=== PATIENT | female | born 1990 | race Caucasian/White ===

== ENCOUNTER 2016-09-17 19:39 | Emergency (ER) | payer BC ==
[~2016-09-17] VITALS: Ht 172.7 cm; Wt 62.6 kg
[2016-09-17 19:49] VITALS: TEMP 36.8; Ht 172.7 cm; Wt 62.6 kg
[2016-09-17] MEDS ORDERED: ACETAMINOPHEN 325 MG TAB PO STA (20:41)
[2016-09-17] MEDS ORDERED: SODIUM CHLORIDE 0.9% 1000ML 1,000 ML IV STA (20:41)
[2016-09-17] MEDS ORDERED: DEXAMETHASONE SOD INJ 10 MG/ML VIAL IV ONE (20:45)
[2016-09-17 20:59] LABS: BASO % 0.2 %; BASO ABS # 0.02 K/uL (0-0.2); COMPLETE YES; EOS % 0.1 %; HEMATOCRIT 37.4 % (37-47); IG% 0.1 %; LYMPH % 17.2 %; LYMPH ABS # 1.65 K/uL (1.2-3.4); MEAN CELL VOLUME 82.2 fL (80-100); MEAN CORPUSCULAR HEMOGLOBIN 27.3 pg (25-34); MEAN CORPUSCULAR HGB CONC 33.2 g/dl (32-36); MEAN PLATELET VOLUME 11.3 fL (7.4-10.4); MONO % 6.9 %; NEUT % 75.5 %; PLATELET COUNT 231 K/uL (130-400); RED BLOOD COUNT 4.55 M/uL (4.2-5.4); WHITE BLOOD COUNT 9.58 K/uL (4.8-10.8)
[2016-09-17 21:16] LABS: BUN/CREATININE RATIO 6.7 (10-20); CALCIUM 9.3 mg/dl (8.5-10.1); POTASSIUM 3.5 mmol/L (3.5-5.1)
[2016-09-17] MEDS ORDERED: BCPILLS PO (21:37)
[2016-09-17] MEDS ORDERED: AMOX875T PO (21:37)
[2016-09-17 21:47] VITALS: BP 128/89; PULSE 76; O2SAT 100
[2016-09-17] MEDS ORDERED: PRED20TA PO (22:04)
--- NOTE | 2016-09-18 00:50 | EMERGENCY ROOM VISIT NOTE ---
History Report prepared by Tracey: Rosi Ramirez Under the Supervision of: Dr. Freddie Granados M.D. First contact with patient: 20:34 Chief Complaint: ILLNESS Stated Complaint: SORETHROAT,FEVER History of Present Illness The patient is a 26 year old female who presents to the Emergency Room with complaints of a persistent sore throat that began Tuesday. She currently rates her discomfort as an 8/10 in severity. The patient states that she developed her sore throat on Tuesday and additionally states that she had a fever of 103.9 degrees Fahrenheit. She states that she was started on Augmentin on Tuesday and has had six doses since then. The patient states that she had mono two years ago. She additionally associates feeling fatigued and achy today. The patient denies any cough, runny nose, or abdominal pain. She states that she was seen at the walk-in clinic next door and was instructed to come to the emergency department for further work up. The patient denies any active medical problems. Source of History: patient Onset: Tuesday Position: throat Symptom Intensity: 8/10 Quality: other (sore) Timing: other (persistent) Associated Symptoms: + fevers, + fatigue, No cough, No abdominal pain Note: Associated Symptoms: achy Review of Systems See HPI for pertinent positives & negatives. A total of 10 systems reviewed and were otherwise negative. Past Medical & Surgical Surgical Problems: (1) H/O wisdom tooth extraction Family History Hypertension Social History Smoking Status: Never Smoker Smokeless Tobacco Use: No Alcohol Use: none Marital Status: Housing Status: lives with significant other Occupation Status: employed Current/Historical Medications Scheduled Amoxicillin & Pot Clavulanate (Augmentin 875-125 mg), 1 TAB PO Q12 Control Pills ( Control Pills), 1 TAB PO DAILY Prednisone (Prednisone), 3 TAB PO DAILY Allergies Coded Allergies: No Known Allergies (Unverified , 09/17/16) Physical Exam Vital Signs Date Time Temp Pulse Resp B/P (MAP) Pulse Ox O2 Delivery O2 Flow Rate FiO2 09/17/16 21:47 76 16 128/89 100 Room Air 09/17/16 19:49 36.8 94 18 153/96 100 Room Air Physical Exam Constitutional: Vital signs reviewed. Eyes: Pupils are equal round reactive to light. Conjunctiva are noninjected. ENT: Bilateral tonsillar enlargement with bilateral exudate. No uvular edema or shift. No peritonsillar fluctuance. No trismus or drooling. Neck bilateral anterior cervical lymphadenopathy, supple without meningeal signs. Respiratory: Clear to auscultation bilaterally. Breath sounds are equal bilaterally. No wheezing or stridor. Cardiovascular: Regular rate and rhythm. No rubs or gallops. GI: Soft, nondistended and nontender. No organomegaly. Bowel sounds are present. Musculoskeletal: No peripheral edema. Integumentary: No cyanosis. Neurological: The patient is awake and alert. No focal deficits. Psychiatric: Normal affect. Medical Decision & Procedures Laboratory Results 09/17/16 20:35 Red Blood Count 4.55, Mean Corpuscular Volume 82.2, Mean Corpuscular Hemoglobin 27.3, Mean Corpuscular Hemoglobin Concent 33.2, Mean Platelet Volume 11.3, Neutrophils (%) (Auto) 75.5, Lymphocytes (%) (Auto) 17.2, Monocytes (%) (Auto) 6.9, Eosinophils (%) (Auto) 0.1, Basophils (%) (Auto) 0.2, Neutrophils # (Auto) 7.23, Lymphocytes # (Auto) 1.65, Monocytes # (Auto) 0.66, Eosinophils # (Auto) 0.01, Basophils # (Auto) 0.02 09/17/16 20:35 Test 09/17/16 20:35 White Blood Count 9.58 K/uL (4.8-10.8) Red Blood Count 4.55 M/uL (4.2-5.4) Hemoglobin 12.4 g/dL (12.0-16.0) Hematocrit 37.4 % (37-47) Mean Corpuscular Volume 82.2 fL (80-100) Mean Corpuscular Hemoglobin 27.3 pg (25-34) Mean Corpuscular Hemoglobin Concent 33.2 g/dl (32-36) Platelet Count 231 K/uL (130-400) Mean Platelet Volume 11.3 fL (7.4-10.4) Neutrophils (%) (Auto) 75.5 % Lymphocytes (%) (Auto) 17.2 % Monocytes (%) (Auto) 6.9 % Eosinophils (%) (Auto) 0.1 % Basophils (%) (Auto) 0.2 % Neutrophils # (Auto) 7.23 K/uL (1.4-6.5) Lymphocytes # (Auto) 1.65 K/uL (1.2-3.4) Monocytes # (Auto) 0.66 K/uL (0.11-0.59) Eosinophils # (Auto) 0.01 K/uL (0-0.5) Basophils # (Auto) 0.02 K/uL (0-0.2) RDW Standard Deviation 46.1 fL (36.4-46.3) RDW Coefficient of Variation 15.3 % (11.5-14.5) Immature Granulocyte % (Auto) 0.1 % Immature Granulocyte # (Auto) 0.01 K/uL (0.00-0.02) Anion Gap 8.0 mmol/L (3-11) Est Creatinine Clear Calc Drug Dose 85.0 ml/min Estimated GFR () 90.7 Estimated GFR (Non- 78.2 BUN/Creatinine Ratio 6.7 (10-20) Calcium Level 9.3 mg/dl (8.5-10.1) Total Bilirubin 0.7 mg/dl (0.2-1) Direct Bilirubin 0.2 mg/dl (0-0.2) Aspartate Amino Transf (AST/SGOT) 13 U/L (15-37) Alanine Aminotransferase (ALT/SGPT) 18 U/L (12-78) Alkaline Phosphatase 90 U/L (45-117) Total Protein 8.3 gm/dl (6.4-8.2) Albumin 3.6 gm/dl (3.4-5.0) Monoscreen NEG (NEG) Laboratory results as reviewed by me. Medications Administered Medications (Trade) Dose Ordered Sig/Campbell Route Start Time Stop Time Status Last Admin Dose Admin Sodium Chloride 1,000 ml @ 999 mls/hr Q1H1M STAT IV 09/17/16 20:41 09/17/16 21:41 DC 09/17/16 21:01 999 MLS/HR Acetaminophen (Tylenol Tab) 650 mg NOW STAT PO 09/17/16 20:41 09/17/16 20:43 DC 09/17/16 21:02 650 MG Dexamethasone Sodium Phosphate (Decadron Inj) 10 mg NOW ONCE IV 09/17/16 20:45 09/17/16 20:46 DC 09/17/16 21:02 10 MG ED Course 2035: The patient was evaluated in room A11B. A complete history and physical exam was performed. 2040: Ordered Tylenol Tab 650 mg PO, Sodium Chloride 1000 ml @ 999 mls/hr IV. 2044: Ordered Decadron Inj 10 mg IV. 2153: I reevaluated the patient and she is resting comfortably. I discussed the exam findings with her and I discussed the treatment plan. She verbalized compete understanding and agreement. She is ready to go home. Medical Decision This is a 26-year-old female who presents with a sore throat. Differential diagnosis includes exudative pharyngitis, peritonsillar abscess, infectious mononucleosis, strep pharyngitis, outpatient treatment failure. I did perform a limited focused review of portions of the patient's old chart on the electronic medical record. The patient has had no prior visits. Blood Pressure Screening: Patient was found to have an elevated blood pressure and was referred to their primary doctor for recheck and further treatment. Medication Reconciliation: I attest that I have personally reviewed the patient' s current medication list. I did evaluate the patient as noted above. The patient is presenting with persistent sore throat despite being on antibiotics. She has tonsillar enlargement bilaterally with exudate. She does not have signs of peritonsillar abscess. There is no fluctuance to the tonsillar pillars on palpation. She has no uvula shift or edema. She has no trismus or drooling. A rapid strep test was obtained and was negative. IV access was established. I did treat her with IV fluids. She was also given Tylenol. I also treated her with Decadron 10 mg IV. I did order and review the patient's blood work as noted in the electronic medical record. Her white blood cell count is not elevated. I did reassess the patient. I did discuss the test results with her. I did discuss the possibility of CT scanning but I felt it was not essential as she does not have clinical signs of retropharyngeal abscess or peritonsillar abscess. She was in agreement and felt comfortable continuing her antibiotics and be placed on prednisone to help with the inflammation. She was given a prescription for prednisone and advised to follow up closely with her doctor or Dr. Barone of otolaryngology. Impression Primary Impression: Exudative pharyngitis Scribe Attestation The scribe's documentation has been prepared under my direct and personally reviewed by me in its entirety. I confirm that the note above accurately reflects all work, treatment, procedures, and medical decision making performed by me. Departure Information Dispostion Home / Self-Care Prescriptions Prednisone (Prednisone) 20 Mg Tab 3 TAB PO DAILY, #12 TAB FOR 4 DAYS Prov: Freddie Granados M.D. 09/17/16 Referrals Xochilt Barone M.D. Woytowich, Jessica A., PA-C Forms HOME CARE DOCUMENTATION FORM, IMPORTANT VISIT INFORMATION, WORK / SCHOOL INSTRUCTIONS Patient Instructions My [facility] Additional Instructions You have been examined and treated today on an emergency basis only. This is not a substitute for, or an effort to provide, complete comprehensive medical care. It is impossible to recognize and treat all injuries or illnesses in a single emergency department visit. It is therefore important that you follow up closely with your physician and/or Dr. Barone of otolaryngology. Call as soon as possible for an appointment. Return for worsening symptoms or if you develop difficulty breathing, abdominal pain, inability to open your mouth, drooling or any other concerning symptoms.
== END 2016-09-17 22:15 | disposition home or self-care (01) ==
LOC: C.EDB 19:42 → MERGE 19:42 → C.EDA 22:15
DX: J02.9 Acute pharyngitis, unspecified (principal)

== ENCOUNTER → 2017-03-17 | Outpatient (CLI) | payer BC ==
[~2017-03-17] MED LIST: AMOX875T PO; BCPILLS PO; DOCU-94 PO; PRED20TA PO; PRENTAB26 PO
== END | disposition home or self-care (01) ==
LOC: C.LABSPEC 16:30
PROVIDERS: ATTEND Obstetrics & Gynecology
DX: Z34.01 Encounter for supervision of normal first pregnancy, first trimester (principal)

== ENCOUNTER → 2017-03-22 | Outpatient (CLI) | payer BC ==
[~2017-03-22] MED LIST changes: -DOCU-94 PO; -PRED20TA PO; -PRENTAB26 PO
== END | disposition home or self-care (01) ==
LOC: C.LABSPEC 17:31
PROVIDERS: ATTEND Obstetrics & Gynecology
DX: Z34.01 Encounter for supervision of normal first pregnancy, first trimester (principal)

== ENCOUNTER → 2017-03-22 | Outpatient (CLI) | payer BC | END | disposition home or self-care (01) | LOC: C.PAPS 09:23 | PROVIDERS: ATTEND Obstetrics & Gynecology | DX: Z34.01 Encounter for supervision of normal first pregnancy, first trimester (principal); R87.618 Other abnormal cytological findings on specimens from cervix uteri ==

== ENCOUNTER → 2017-04-07 | Outpatient (CLI) | payer BC ==
[2017-04-07 17:16] LABS: BASO % 0.3 %; BASO ABS # 0.03 K/uL (0-0.2); EOS % 0.7 %; EOS ABS # 0.07 K/uL (0-0.5); HEMOGLOBIN 11.4 g/dL (12.0-16.0); IG# 0.02 K/uL (0.00-0.02); LYMPH % 23.7 %; LYMPH ABS # 2.52 K/uL (1.2-3.4); MEAN CELL VOLUME 82.3 fL (80-100); MEAN CORPUSCULAR HEMOGLOBIN 27.6 pg (25-34); MEAN CORPUSCULAR HGB CONC 33.5 g/dl (32-36); MEAN PLATELET VOLUME 10.2 fL (7.4-10.4); MONO % 5.7 %; MONO ABS # 0.61 K/uL (0.11-0.59); NEUT % 69.4 %; NEUT ABS # 7.38 K/uL (1.4-6.5); PLATELET COUNT 242 K/uL (130-400); RED CELL DISTRIBUTION WIDTH CV 15.8 % (11.5-14.5); RED CELL DISTRIBUTION WIDTH SD 47.3 fL (36.4-46.3); WHITE BLOOD COUNT 10.63 K/uL (4.8-10.8)
== END | disposition home or self-care (01) ==
LOC: C.LAB1850 16:19
PROVIDERS: ATTEND Obstetrics & Gynecology
DX: Z34.01 Encounter for supervision of normal first pregnancy, first trimester (principal)

== ENCOUNTER → 2017-05-23 | Outpatient (CLI) | payer BC ==
[2017-05-23 16:52] LABS: BASO % 0.1 %; BASO ABS # 0.01 K/uL (0-0.2); EOS % 0.6 %; EOS ABS # 0.05 K/uL (0-0.5); HEMATOCRIT 32.8 % (37-47); HEMOGLOBIN 11.2 g/dL (12.0-16.0); IG# 0.02 K/uL (0.00-0.02); LYMPH % 20.8 %; LYMPH ABS # 1.69 K/uL (1.2-3.4); MEAN CORPUSCULAR HEMOGLOBIN 28.4 pg (25-34); MEAN CORPUSCULAR HGB CONC 34.1 g/dl (32-36); MEAN PLATELET VOLUME 10.1 fL (7.4-10.4); MONO % 5.2 %; MONO ABS # 0.42 K/uL (0.11-0.59); NEUT % 73.1 %; NEUT ABS # 5.92 K/uL (1.4-6.5); PLATELET COUNT 231 K/uL (130-400); RED CELL DISTRIBUTION WIDTH CV 14.4 % (11.5-14.5); RED CELL DISTRIBUTION WIDTH SD 44.2 fL (36.4-46.3); WHITE BLOOD COUNT 8.11 K/uL (4.8-10.8)
[2017-05-23 17:22] LABS: ALT/SGPT 28 U/L (12-78); CREATININE 0.61 mg/dl (0.60-1.20); URIC ACID 2.8 mg/dl (2.6-7.2)
[2017-05-23 17:23] LABS: AST/SGOT 13 U/L (15-37)
== END | disposition home or self-care (01) ==
LOC: C.LAB1850 15:47
PROVIDERS: ATTEND Obstetrics & Gynecology
DX: Z34.02 Encounter for supervision of normal first pregnancy, second trimester (principal); O10.912 Unspecified pre-existing hypertension complicating pregnancy, second trimester

== ENCOUNTER → 2017-10-10 | Outpatient (CLI) | payer BC | END | disposition home or self-care (01) | LOC: C.LABSPEC 16:51 | PROVIDERS: ATTEND Obstetrics & Gynecology | DX: Z34.03 Encounter for supervision of normal first pregnancy, third trimester (principal) ==

== ENCOUNTER 2017-10-27 11:44 | Inpatient (IN) | payer BC ==
[~2017-10-27] VITALS: Ht 170.2 cm; Wt 76.4 kg
[2017-10-27] MEDS ORDERED: LACTATED RINGER'S 1000ML 1,000 ML IV PRN (12:54)
[2017-10-27] MEDS ORDERED: LACTATED RINGER'S 1000ML 1,000 ML IV SCH (12:54)
[2017-10-27 13:34] LABS: HEMATOCRIT 38.4 % (37-47); HEMOGLOBIN 13.4 g/dL (12.0-16.0); MEAN CELL VOLUME 86.7 fL (80-100); MEAN CORPUSCULAR HEMOGLOBIN 30.2 pg (25-34); MEAN CORPUSCULAR HGB CONC 34.9 g/dl (32-36); MEAN PLATELET VOLUME 11.5 fL (7.4-10.4); PLATELET COUNT 190 K/uL (130-400); RED CELL DISTRIBUTION WIDTH CV 15.5 % (11.5-14.5); RED CELL DISTRIBUTION WIDTH SD 49.9 fL (36.4-46.3); WHITE BLOOD COUNT 11.49 K/uL (4.8-10.8)
[2017-10-27 14:08] VITALS: Ht 170.2 cm; Wt 76.4 kg
[2017-10-27 14:11] LABS: ALKALINE PHOSPHATASE 131 U/L (45-117); ALT/SGPT 21 U/L (12-78); BLOOD UREA NITROGEN 13 mg/dl (7-18); CALCIUM 9.1 mg/dl (8.5-10.1); CARBON DIOXIDE 22 mmol/L (21-32); CREATININE 0.71 mg/dl (0.60-1.20); GLUCOSE 72 mg/dl (70-99); SODIUM 135 mmol/L (136-145); TOTAL PROTEIN 7.6 gm/dl (6.4-8.2)
[2017-10-27] MEDS ORDERED: DOCU-94 PO (14:11)
[2017-10-27] MEDS ORDERED: PRENTAB26 PO (14:11)
[2017-10-27] MEDS ORDERED: BUPIVACAINE 0.25% 30 ML VIAL ONE (15:17)
[2017-10-27] MEDS ORDERED: EpHEDrine SULFATE INJ 50 MG/ML AMP ONE (15:17)
[2017-10-27] MEDS ORDERED: FENTANYL CITRATE INJ 50 MCG/1 ML 2 ML VIAL ONE (15:17)
[2017-10-27] MEDS ORDERED: FENTANYL 2MCG/ML ROPIV 1.25MG/ML 100ML BAG ONE (15:18)
[2017-10-27 15:20] LABS: POTASSIUM 3.9 mmol/L (3.5-5.1)
[2017-10-27] MEDS ORDERED: NALOXONE HCL INJ 1 MG in SODIUM CHLORIDE 0.9% 1000ML 1,000 ML IV PRN (16:22)
[2017-10-27] MEDS ORDERED: LACTATED RINGER'S 1000ML 500 ML IV PRN (16:22)
[2017-10-27] MEDS ORDERED: EpHEDrine SULFATE INJ 50 MG/ML AMP IV PRN (16:30)
[2017-10-27] MEDS ORDERED: ONDANSETRON INJ 2 MG/ML 2 ML VIAL IV PRN (16:30)
[2017-10-27] MEDS ORDERED: NALOXONE HCL INJ 0.4 MG/1 ML VIAL/CARP IV PRN (16:30)
[2017-10-27] MEDS ORDERED: FENTANYL 2MCG/ML ROPIV 1.25MG/ML 100ML BAG EPI PRN (16:30)
[2017-10-27] MEDS ORDERED: DiphenhydrAMINE HCL 50 MG/ML VIAL IV PRN (16:30)
[2017-10-27] MEDS ORDERED: NALBUPHINE HCL INJ 10 MG/ML 1ML AMP IV PRN (16:30)
[2017-10-27] MEDS ORDERED: OXYTOCIN 30 UNITS/500ML NSS IV ONE (18:43)
[2017-10-27] MEDS ORDERED: BENZOCAINE 20% AER SPR 82.5 GM CAN EXT PRN (19:00)
[2017-10-27] MEDS ORDERED: OXYCODONE/ACETAMINOPHEN 5-325 TAB PO PRN (19:00)
[2017-10-27] MEDS ORDERED: HYDROCORTISONE ACETATE 25 MG SUPP PR PRN (19:00)
[2017-10-27] MEDS ORDERED: LANOLIN OINT EXT PRN (19:00)
[2017-10-27] MEDS ORDERED: ACETAMINOPHEN 325 MG TAB PO PRN (19:00)
[2017-10-27] MEDS ORDERED: SUPERCREAM 0.870 % 15GM JAR EXT PRN (19:00)
[2017-10-27] MEDS ORDERED: OXYTOCIN 30 UNITS/500ML NSS IV PRN (19:00)
--- NOTE | 2017-10-27 19:15 | Anesthesia Procedure Note ---
Anesthesia Epidural Removal Nt Date & Time Oct 27, 2017 at 19:15 Vital Signs Pain Intensity: 0.0 Notes Mental Status: alert / awake / arousable, participated in evaluation Nausea / Vomiting: adequately controlled Pain: adequately controlled Airway Patency, RR, SpO2: stable & adequate BP & HR: stable & adequate Hydration State: stable & adequate Neuraxial Anesthesia: was administered, sensory block is resolving Anesthetic Complications: no major complications apparent, pt satisfied with anesthetic care Epidural: removed without complications, with tip intact
[2017-10-27] MEDS: DOCUSATE SODIUM 100 MG CAP PO SCH (20:00)
[2017-10-27 21:10] VITALS: BP 134/85; PULSE 90; TEMP 36.4; O2SAT 98
--- NOTE | 2017-10-27 22:42 | DELIVERY SUMMARY ---
DATE OF OPERATION: 10/27/2017 PREOPERATIVE DIAGNOSES: 1. Intrauterine at 39-0/7 weeks. 2. Chronic hypertension in . 3. Normal labor. POSTOPERATIVE DIAGNOSES: Same. PROCEDURES: 1. Amniotomy. 2. Epidural anesthesia. 3. Normal spontaneous vaginal delivery. 4. Second degree perineal laceration with repair. SURGEON: Skyla Can MD ANESTHESIA: Epidural. ESTIMATED BLOOD LOSS: 300 mL. DESCRIPTION OF PROCEDURE: The patient presented to labor and delivery from the office where she was checked and found to be 5 cm and 90%. She was admitted. We discussed options, and she opted for amniotomy. This was performed for clear fluid. She then became uncomfortable and underwent an epidural anesthetic when she was 6 cm dilated. She then progressed spontaneously to complete, complete, +3 station. She pushed for a very short period of time to deliver a viable female infant in RICHARD presentation with a nuchal arm. There was no nuchal cord. The nose and mouth were bulb suctioned, and the rest of the infant was then delivered without difficulty. The infant was vigorous. The nose and mouth were suctioned. The was placed on the maternal abdomen for drying and attention. Cord was clamped and cut at about 30-40 seconds of life, and then blood was collected for donation. Placenta was delivered spontaneously intact with the 3-vessel cord. Cervix, sulci, and rectum were examined and found to be intact. The hemostasis was obtained with dilute Pitocin and fundal massage. Estimated blood loss is 300 mL. Apgars 8 and 8. Mother and baby doing well at the end of the delivery. I attest to the content of the Intraoperative Record and any orders documented therein. Any exception s are noted below.
[2017-10-27 23:20] VITALS: BP 125/81; PULSE 92; TEMP 36.7; O2SAT 98
[2017-10-28 04:15] VITALS: BP 130/86; PULSE 84; TEMP 36.7; O2SAT 100
[2017-10-28] MEDS: IBUPROFEN 600 MG TAB PO PRN ×5 (04:20→23:27)
--- NOTE | 2017-10-28 06:28 | Progress Note ---
Subjective Oct 28, 2017. Subjective conversation w/ patient, physical exam Ambulation: ambulating normally Voiding: no voiding problems Passing Gas: Yes Diet Tolerance: Regular Diet Lochia: Moderate Feeding Type: Breast Feeding Pain: Improving Review of Systems Constitutional: No fever, No chills, No sweats Respiratory: No cough, No sputum, No wheezing Cardiac: No chest pain, No palpitations Abdomen: No pain, No nausea, No vomiting, No diarrhea Female : No dysuria Objective Vital Signs Date Time Temp Pulse Resp B/P (MAP) Pulse Ox O2 Delivery O2 Flow Rate FiO2 10/28/17 04:15 36.7 84 20 130/86 (101) 100 Room Air 10/27/17 23:20 36.7 92 18 125/81 (96) 98 Room Air 10/27/17 23:20 98 Room Air 10/27/17 21:10 36.4 90 18 134/85 (101) 98 Room Air 10/27/17 21:10 98 Room Air Physical Exam General Appearance: WELL-APPEARING, NO APPARENT DISTRESS Respiratory/Chest: chest non-tender, normal breath sounds Cardiovascular: regular rate, rhythm Abdomen: normal bowel sounds Fundus: Firm, Relation to Umbilicus (-1cm) Extremities: non-tender, no calf tenderness Laboratory Results Last 24 Hours Test 10/27/17 13:03 10/27/17 13:15 10/27/17 14:51 10/28/17 04:44 White Blood Count 11.49 K/uL Red Blood Count 4.43 M/uL Hemoglobin 13.4 g/dL Hematocrit 38.4 % Mean Corpuscular Volume 86.7 fL Mean Corpuscular Hemoglobin 30.2 pg Mean Corpuscular Hemoglobin Concent 34.9 g/dl RDW Standard Deviation 49.9 fL RDW Coefficient of Variation 15.5 % Platelet Count 190 K/uL Mean Platelet Volume 11.5 fL Sodium Level 135 mmol/L Potassium Level mmol/L 3.9 mmol/L Chloride Level 105 mmol/L Carbon Dioxide Level 22 mmol/L Anion Gap 8.0 mmol/L Blood Urea Nitrogen 13 mg/dl Creatinine 0.71 mg/dl Estimated GFR () 136.2 Estimated GFR (Non- 117.6 BUN/Creatinine Ratio 18.5 Random Glucose 72 mg/dl Calcium Level 9.1 mg/dl Total Bilirubin 0.3 mg/dl Aspartate Amino Transf (AST/SGOT) U/L 15 U/L Alanine Aminotransferase (ALT/SGPT) 21 U/L Alkaline Phosphatase 131 U/L Total Protein 7.6 gm/dl Albumin 3.0 gm/dl Globulin 4.6 gm/dl Albumin/Globulin Ratio 0.7 Medications Current Inpatient Medications Medications (Trade) Dose Ordered Sig/Campbell Route Start Time Stop Time Status Last Admin Dose Admin Oxytocin (Pitocin IV) 30 units UD PRN IV 10/27/17 19:00 11/26/17 18:59 Benzocaine (Dermoplast Aero Spr) 1 appln PRN PRN EXT 10/27/17 19:00 11/26/17 18:59 10/27/17 21:28 1 APPLN Cocaine HCl (Supercream 0.870% Cr) BID PRN EXT 10/27/17 19:00 11/10/17 18:59 Hydrocortisone Acetate (Anusol Hc Supp) 25 mg BID PRN VA 10/27/17 19:00 11/26/17 18:59 Lanolin (Lanolin Oint) PRN PRN EXT 10/27/17 19:00 11/26/17 18:59 Prenat Multivit/ Radio Interference Investigator/Iron/Folic Ac ( Vitamin Tab) 1 tab DAILY PO 10/28/17 08:00 11/27/17 07:59 Ibuprofen (Motrin Tab) 600 mg Q4H PRN PO 10/27/17 19:00 11/26/17 18:59 10/28/17 04:20 600 MG Acetaminophen (Tylenol Tab) 650 mg Q6H PRN PO 10/27/17 19:00 11/26/17 18:59 Oxycodone/ Acetaminophen (Percocet 5-325mg Tab) 1 tab Q4H PRN PO 10/27/17 19:00 11/10/17 18:59 Docusate Sodium (coLACE CAP) 100 mg BID PO 10/27/17 20:00 11/26/17 19:59 Assessment and Plan Post- Day#: 1 Continue Routine Care: 27 yo PPD1 s/p -AFVSS, Pt doing well resting comfortably -F/U CBC HGB 13.4 on admission no si/sx of anemia -Plan is to breast feed -Tolerating regular diet, no n/v -Continue to encourage ambulation -Routine care Resident Physician Supervision Note: I interviewed and examined the patient. Discussed with Dr. Nielsen and agree with findings and plan as documented in the note. Any exceptions or clarifications are listed here: Doing well. Routine care. Documented By: Skyla Can Resident Tracking Resident Involvement: Resident Care Provided Care Provided: Adult [facility]
--- NOTE | 2017-10-28 06:51 | Discharge Instructions ---
Discharge Instructions Date of Service Oct 28, 2017. Admission Reason for Admission: Check Labor Discharge Discharge Diagnosis / Problem: Discharge Goals Goal(s): Routine recovery after delivery Medications Continue Dispensed Medications: supercream, dermaplast, tucks Activity Recommendations Activity Limitations: per Instructions/Follow-up section . Instructions / Follow-Up Instructions / Follow-Up ACTIVITY RECOMMENDATIONS: * Gradual return to full activity over the next 2-3 weeks. * No lifting - nothing heavier than baby over the next 2-3 weeks. * Do not engage in vigorous exercise, sexual activity or sports until cleared by your physician. * Do not drive or operate any motorized equipment until cleared by your physician. * You may shower/bathe daily. MEDICATIONS: For discomfort or pain, you may use Acetaminophen (Tylenol), Ibuprofen (Advil), or Naproxen (Aleve) following the package directions. For constipation you may use Colace following the package directions. BREAST CARE: If you are not breast feeding: * Wear a supportive bra 24 hours a day for one to two weeks. * Avoid stimulating your breasts and nipples as much as possible during the first few weeks after delivery. * When taking a shower, have the warm water hit your back, not breasts. * When your breasts feel full, apply ice packs. Usually three to four times a day helps ease the discomfort. * Take a mild pain medication (Tylenol / Motrin) when you are uncomfortable. If breast feeding: * Use breast milk to lubricate nipples. Lansinoh cream may be used for sore nipples. You do not need to remove cream prior to breast feeding. If using a different brand of cream, check the label for directions regarding removal of cream prior to nursing. * Wear a supportive bra. * If having problems with breasts or breast feeding, call a library consultant or your health care provider. EPISIOTOMY CARE: After delivery, if you have an episiotomy (stitches), the following steps will ease discomfort and aid healing. * For the first 24 hours after delivery, place ice packs next to your episiotomy to help reduce swelling. * After the first 24 hour-period, sitz baths, either portable or in the tub, are suggested. A shower with a shower arm sprayed over the episiotomy may be comforting. * Nancy care should be done after each voiding and bowel movement. Squirt warm water from a plastic bottle over the perineum (region of the body between the anus and urinary opening) and pat dry. * Use Dermoplast to ease discomfort. Shake container. [place] directly over the episiotomy. Place a Tucks on a clean sanitary pad next to your episiotomy. SPECIAL CARE INSTRUCTIONS: When you are discharged from the hospital, it is important for you to follow the instructions listed below: * During the first week at home, you should be able to care for yourself and your baby. In addition, the usual light household activities are encouraged. * Limit your activities to the way you feel. Do not try to clean the house or move furniture. Be sensible. * If you actively engage in sports and have done so up until the time of your delivery, you may resume these activities as soon as you feel able. This may take up to one month or even longer. Use good judgment. * Continue to take your vitamins for at least six weeks after the of your baby. * Your diet need not be limited unless you were on a special diet before your delivery. Breast-feeding mothers need around 2500 calories per day and at least 64-80 ounces of fluid per day (8 to 10 glasses). * You should eat foods from the four major food groups. Crash diets or fad diets are to be avoided. Eating lean meats, fresh fruits and vegetables, low-fat dairy products, high fiber foods and a regular exercise program, will help you get back to your pre- weight without putting your health at risk. * Constipation is sometimes a problem after delivery. Take a mild laxative as needed. If breast feeding, Milk of Magnesia is acceptable to use. You may use a suppository or Fleets enema if no episiotomy. * A daily shower or tub bath is suggested. Be sure to thoroughly and gently dry the perineum. * A bloody vaginal discharge will usually continue until around four weeks post . A small amount of bleeding may continue for as long as six weeks. Vaginal discharge changes from the bright red bleeding after delivery to pink then brownish and finally yellowish-pink before becoming white and disappearing. * Bleeding may increase with activity. Your first period may come in 4-8 weeks. If you are breast feeding, your period may be delayed even longer. * [place] (sex) can begin whenever both you and your partner feel comfortable and do not have any form of genital infection. It is recommended that you wait at least six weeks for internal and external healing to occur. If you have questions, please talk to your health care practitioner. A condom should be used to prevent infection and . * Foreplay, gentle intercourse and lubrication is very important the first several times to prevent pain. A water-based lubricant such as K-Y jelly or Astroglide may be used. * If you have RH negative blood and your baby is RH positive, you will receive RHOGAM by injection prior to discharge. The nurse will give you a card to keep with you that has the date and place that you received RHOGAM after delivery. * During your care, you had a Rubella screen done to check for the presence of rubella antibodies in your blood. If your test was negative, you will receive a Rubella vaccine prior to discharge. This vaccine may cause a fever, soreness at the injection site and flu-like symptoms. If these symptoms persist, notify your health care practitioner. is not advised for one month after a Rubella vaccine. * Verbalizes understanding of car seat law as reviewed with patient nursing. * Car Seat hand-out given and reviewed with patient by nursing. * Shaken baby information reviewed with patient by nursing. Call you doctor if: * Heavy bleeding (saturating several pads an hour) or passing clots the size of your fist. * A fever >101 degrees F (38.3 degrees C) on two occasions four hours apart and /or chills. * Unusual pain in the pelvic or vaginal areas. * "Baby Blues" lasting longer than two weeks. If you have any questions or concerns, call your health care practitioner at . FOLLOW UP VISIT: * Please call the office at to schedule a 6 week examination. It is important you keep this appointment. It is important for you to make arrangements for either yearly or twice yearly check-ups thereafter. Current Hospital Diet Patient's current hospital diet: Regular OB Diet Discharge Diet Recommended Diet: Regular OB Diet Pending Studies Studies pending at discharge: no Medical Emergencies . Who to Call and When: Medical Emergencies: If at any time you feel your situation is an emergency, please call 911 immediately. . Non-Emergent Contact Non-Emergency issues call your: Thermometer Maker Call Non-Emergent contact if: temperature is above 100.5 . . "Provider Documentation" section prepared by Shaun Samuels. . Resident Tracking Resident Involvement: Resident Care Provided Care Provided: Adult [facility]
[2017-10-28 07:08] LABS: HEMATOCRIT 33.4 % (37-47); HEMOGLOBIN 11.3 g/dL (12.0-16.0)
[2017-10-28] MEDS: PRENATAL VITAMIN TAB PO SCH (07:54)
[2017-10-28] MEDS: DOCUSATE SODIUM 100 MG CAP PO SCH ×2 (07:54→20:12)
[2017-10-28 08:00] VITALS: BP 120/81; PULSE 86; TEMP 36.7; O2SAT 99
[2017-10-28 11:25] VITALS: BP 117/77; PULSE 78; TEMP 36.7
[2017-10-28 16:00] VITALS: BP 129/84; PULSE 76; TEMP 36.5
[2017-10-28 20:00] VITALS: BP 121/84; PULSE 84; TEMP 36.8; O2SAT 99
[2017-10-28 23:20] VITALS: BP 110/43; PULSE 83; TEMP 36.6; O2SAT 98
--- NOTE | 2017-10-29 07:11 | Progress Note ---
Subjective Oct 29, 2017. Subjective conversation w/ patient, physical exam Ambulation: ambulating normally Voiding: no voiding problems Passing Gas: Yes Diet Tolerance: Regular Diet Lochia: Small (improving) Feeding Type: Breast Feeding Pain: improving 2/10 Review of Systems Constitutional: No fever, No chills, No sweats Respiratory: No cough, No sputum, No wheezing Cardiac: No chest pain, No palpitations Abdomen: No pain, No nausea, No vomiting, No diarrhea Female : No dysuria Objective Vital Signs Date Time Temp Pulse Resp B/P (MAP) Pulse Ox O2 Delivery O2 Flow Rate FiO2 10/28/17 23:20 36.6 83 18 110/43 (65) 98 Room Air 10/28/17 20:00 36.8 84 16 121/84 (96) 99 Room Air 10/28/17 20:00 99 Room Air 10/28/17 16:00 36.5 76 16 129/84 (99) Room Air 10/28/17 11:25 36.7 78 16 117/77 (90) Room Air 10/28/17 08:00 36.7 86 18 120/81 (94) 99 Room Air 10/28/17 07:55 Room Air Physical Exam General Appearance: WELL-APPEARING, NO APPARENT DISTRESS Respiratory/Chest: chest non-tender Cardiovascular: regular rate, rhythm Abdomen: normal bowel sounds Fundus: Firm, Relation to Umbilicus (below) Extremities: non-tender, no calf tenderness Laboratory Results Date Time Temp Pulse Resp B/P (MAP) Pulse Ox O2 Delivery O2 Flow Rate FiO2 10/28/17 23:20 36.6 83 18 110/43 (65) 98 Room Air 10/28/17 20:00 36.8 84 16 121/84 (96) 99 Room Air 10/28/17 20:00 99 Room Air 10/28/17 16:00 36.5 76 16 129/84 (99) Room Air 10/28/17 11:25 36.7 78 16 117/77 (90) Room Air 10/28/17 08:00 36.7 86 18 120/81 (94) 99 Room Air 10/28/17 07:55 Room Air Last Resulted 10/27/17 13:03 10/28/17 06:56 Last Resulted 10/27/17 13:15 10/27/17 14:51 Medications Current Inpatient Medications Medications (Trade) Dose Ordered Sig/Campbell Route Start Time Stop Time Status Last Admin Dose Admin Oxytocin (Pitocin IV) 30 units UD PRN IV 10/27/17 19:00 11/26/17 18:59 Benzocaine (Dermoplast Aero Spr) 1 appln PRN PRN EXT 10/27/17 19:00 11/26/17 18:59 10/27/17 21:28 1 APPLN Cocaine HCl (Supercream 0.870% Cr) BID PRN EXT 10/27/17 19:00 11/10/17 18:59 Hydrocortisone Acetate (Anusol Hc Supp) 25 mg BID PRN DC 10/27/17 19:00 11/26/17 18:59 Lanolin (Lanolin Oint) PRN PRN EXT 10/27/17 19:00 11/26/17 18:59 Prenat Multivit/ [place]/Iron/Folic Ac ( Vitamin Tab) 1 tab DAILY PO 10/28/17 08:00 11/27/17 07:59 10/28/17 07:54 1 TAB Ibuprofen (Motrin Tab) 600 mg Q4H PRN PO 10/27/17 19:00 11/26/17 18:59 10/28/17 23:27 600 MG Acetaminophen (Tylenol Tab) 650 mg Q6H PRN PO 10/27/17 19:00 11/26/17 18:59 Oxycodone/ Acetaminophen (Percocet 5-325mg Tab) 1 tab Q4H PRN PO 10/27/17 19:00 11/10/17 18:59 Docusate Sodium (coLACE CAP) 100 mg BID PO 10/27/17 20:00 11/26/17 19:59 10/28/17 20:12 100 MG Assessment and Plan Post- Day#: 2 Continue Routine Care: Resident Physician Supervision Note: I interviewed and examined the patient. Discussed with Dr. Samuels and agree with findings and plan as documented in the note. Any exceptions or clarifications are listed here: [None] Documented By: Georgina Andrews 27 yo PPD1 s/p -AFVSS, Pt doing well resting comfortably -F/U CBC HGB 11.3 pp down from 13.4 appropriate s/p delivery, no si/sx -Plan is to bottle feed -Tolerating regular diet -Continue to encourage ambulation -Routine care -Provided Discharge Counseling regarding vaginal bleeding, fever , f/u 6 weeks, no heavy lifting for 2-3 weeks, breast feeding, taking pre- vitamin, intercourse Resident Tracking Resident Involvement: Resident Care Provided Care Provided: Adult [facility] Medicine
[2017-10-29] MEDS: DOCUSATE SODIUM 100 MG CAP PO SCH (08:07)
[2017-10-29] MEDS: PRENATAL VITAMIN TAB PO SCH (08:07)
[2017-10-29 08:10] VITALS: BP 125/77; PULSE 75; TEMP 36.5
[2017-10-29 10:44] VITALS: BP_DIAS 77; PULSE 75; TEMP 36.5
== END 2017-10-29 10:55 | disposition home or self-care (01) | DRG 775 ==
LOC: C.LD 11:44 → C.OPB 11:44 → C.LD 12:56 → C.OPB 12:56 → C.OBG 21:11
PROVIDERS: ADMIT Obstetrics & Gynecology; ATTEND Obstetrics & Gynecology
PROC: 0KQM0ZZ Repair Perineum Muscle, Open Approach (ICD-10-PCS; principal; 2017-10-27)
PROC: 10E0XZZ Delivery of Products of Conception, External Approach (ICD-10-PCS; principal; 2017-10-27)
DX: O64.4XX0 Obstructed labor due to shoulder presentation, not applicable or unspecified (principal); O70.1 Second degree perineal laceration during delivery; O16.4 Unspecified maternal hypertension, complicating childbirth; Z3A.39 39 weeks gestation of pregnancy; Z37.0 Single live birth

== ENCOUNTER 2020-04-22 19:08 | Inpatient (IN) ==
[2020-04-22] MEDS ORDERED: OXYTOCIN 30 UNITS/500 ML BAG IV PRN ×2 (19:23→21:26)
[2020-04-22] MEDS: LACTATED RINGER'S 1,000 ML IV PRN ×2 (19:29→20:28)
--- NOTE | 2020-04-22 19:32 | History & Physical Report ---
Date of Service April 22, 2020 Assessment & Plan (1) Supervision of normal intrauterine in multigravida: 29 at 39.4 weeks GA. Presents in active labor. 1. Fetus Cat 1 2. Labor: Active, AROM after admitted 3. GBS negative 4. Vitals WNL History of Present Illness Primary Care Provider: Jeanna Rojas MD 29 at 39.4 weeks GA. Presents in active labor. Denies LOF, VB. Good FM. uncomplicated to date. OB Labs: Blood Type B Positive 09/13/19 Antibody Screen NEGATIVE 09/13/19 Hemoglobin 10.4 g/dL (12.0-16.0) L 02/01/20 Hematocrit 32.1 % (37-47) L 02/01/20 Mean Corpuscular Volume 84.6 fL (80-100) 09/13/19 Platelet Count 229 K/uL (130-400) 09/13/19 Rubella IgG Antibody Immune (Immune) 09/13/19 Rapid Plasma Reagin Nonreactive (Nonreactive) 09/13/19 Hepatitis B Surface Antigen Neg (Neg) 09/13/19 HIV (1&2) Ab and P24 Ag, 4th Gener Neg (Neg) 09/13/19 Glucose 1 Hour 50 gm Load 126 mg/dl (70-130) 02/01/20 OB Optional Labs: Chlamydia trachomatis RNA NOT DETECTED (NOT DETECTED) 09/13/19 Neisseria gonorrhoeae RNA NOT DETECTED (NOT DETECTED) 09/13/19 Thyroid Stimulating Hormone (TSH) 1.910 uIu/ml (0.300-4.500) 05/08/19 Labs Reviewed: low risk panorama cf/sma neg last declines afp Allergies Allergy/AdvReac Type Severity Reaction Status Date / Time No Known Allergies Allergy Verified 04/22/20 19:18 Home Medications Medication Instructions Recorded Confirmed Type prenat.vits,heather,khy-qvkc-zclgu 1 tab PO DAILY 09/06/19 04/22/20 History Patient History Medical History Encounter for anatomic survey Exudative pharyngitis History of varicella vaccination HTN (hypertension), benign Neurogenic syncope Synovitis of left knee Surgical History [place] teeth removed Family History Mother Hypertension Social History Smoking Status: Never smoker Hx Alcohol Use: No Hx Substance Use: No marital status: marital status details: Roe Qureshi (28) [phone] Current Living Situation: Family Current Living Situation Comment: lives with and child, no pets current occupation: homemaker Physical Exam Constitutional: WD/WN, vitals as above Respiratory: normal respiratory effort; no respiratory distress, no labored breathing and no retractions Cardiovascular: Rate/Rhythm: regular rate Gastrointestinal (Abdomen): Percussion/Palpation: abdomen soft; abdomen nontender, no guarding and abdomen not rigid Psychiatric: A+Ox3, euthymic affect Genitourinary: OB Exam Abdomen: + vertex Manual OB Exam: + cervical dilation 7 cm, + cervical effacement 90% and + station -1 OB Exam Monitor Tracing: + external FHT monitor used, + external uterine monitor used, + category I and + normal FHT variability; no early decelerations present, no late decelerations present and no variable decelerations Results & Data ([facility]) Vital Signs (Past 12 Hours) Vital Signs Pulse BP 04/22/20 19:15 80 136/87 Coding Level of Care Code None Diagnoses Supervision of normal intrauterine in multigravida Z34.80
[2020-04-22 19:47] LABS: Hematocrit (blood only) 36.6 % (37-47); Hemoglobin 12.6 g/dL (12.0-16.0); Mean Corpuscular Hemoglobin 30.9 pg (25-34); Mean Corpuscular Hgb Conc 34.4 g/dL (32-36); Mean Corpuscular Volume 89.7 fL (80-100); Mean Platelet Volume 10.9 fL (7.4-10.4); Platelet Count 177 K/uL (130-400); RDW Coefficient of Variation 15.9 % (11.5-14.5); RDW Standard Deviation 51.9 fL (36.4-46.3); Red Blood Count 4.08 M/uL (4.2-5.4); White Blood Count 10.87 K/uL (4.8-10.8)
[2020-04-22] MEDS ORDERED: BUPIVACAINE 0.25% 30 ML VIAL ONE (19:52)
[2020-04-22] MEDS ORDERED: ePHEDrine sulfate 50 MG/ML AMP ONE (19:52)
[2020-04-22] MEDS ORDERED: SODIUM CHLORIDE 0.9% INJ 10 ML VIAL ONE (19:52)
[2020-04-22] MEDS ORDERED: fentaNYL 2MCG/ML ROPIVACAINE 1.25MG/ML 100 ML BAG EPI ONE (19:53)
[2020-04-22] MEDS ORDERED: fentaNYL citrate 100 MCG/2 ML VIAL ONE (19:53)
[2020-04-22] MEDS ORDERED: NALOXONE HCL 0.4 MG/1 ML VIAL/CARP IV PRN (19:54)
[2020-04-22] MEDS ORDERED: fentaNYL 2MCG/ML ROPIVACAINE 1.25MG/ML 100 ML BAG EPI PRN (19:54)
[2020-04-22] MEDS ORDERED: ePHEDrine sulfate 50 MG/ML AMP IV PRN (19:54)
[2020-04-22] MEDS ORDERED: diphenhydrAMINE 50 MG/ML VIAL IV PRN (19:54)
[2020-04-22] MEDS ORDERED: ONDANSETRON INJ 2 MG/ML 2 ML VIAL IV PRN (19:54)
[2020-04-22] MEDS ORDERED: NALOXONE HCL 1 MG in SODIUM CHLORIDE 0.9% 1000ML 1,000 ML IV PRN (19:54)
--- NOTE | 2020-04-22 19:56 | Anesthesiology Consultation ---
Date of Service April 22, 2020 Assessment & Plan (1) Encounter for pre-operative examination: Chart Review Chart Review: Acceptable Risk for Surgery and Patient NOT seen in Pre Admission Testing Consults Requested none History Height/Weight Height: 5 ft 8 in Weight: 76.657 kg Allergies Allergy/AdvReac Type Severity Reaction Status Date / Time No Known Allergies Allergy Verified 04/22/20 19:18 Medications Home Medications Medication Instructions Recorded Confirmed Last Taken prenat.vits,heather,csw-rqvf-ppgid 1 tab PO DAILY 09/06/19 04/22/20 04/22/20 Active Medications Generic Name Dose Route Start Last Admin Trade Name Freq PRN Reason Stop Dose Admin Lactated Ringer's 1,000 mls @ 125 mls/hr 04/22/20 19:23 04/22/20 19:29 Lr IV 04/24/20 19:22 999 mls/hr .Q8H PRN Administration L&D Protocol Protocol Past Medical History Medical History Encounter for anatomic survey Exudative pharyngitis History of varicella vaccination HTN (hypertension), benign Neurogenic syncope Synovitis of left knee Exercise / Class Metabolic Activity II 4-5 Yardwork/Stairs/Walk up hill Past Family History Family History Mother Hypertension Past Surgical History Surgical History [place] teeth removed Past Anesthesia History No Hx of Anesthesia Complications and No Family Hx of Anesthesia Complications History of PONV No Hx of PONV and No Hx of Motion Sickness Social History Smoking Status: Never smoker Hx Alcohol Use: No Hx Substance Use: No Physical Exam Vital Signs Last Vital Signs Temp 36.3 C L 04/22/20 19:20 Pulse 77 04/22/20 20:11 Resp 18 04/22/20 19:20 BP 128/81 04/22/20 20:11 Pulse Ox 99 04/22/20 20:10 Testing Laboratory Results 04/22/20 19:38
[2020-04-22] MEDS ORDERED: ACETAMINOPHEN 325 MG TAB PO PRN (21:26)
[2020-04-22] MEDS ORDERED: SUPERCREAM 0.870% 15 GM JAR EXT PRN (21:26)
[2020-04-22] MEDS ORDERED: BENZOCAINE 20% AER SPR 82.5 GM CAN EXT PRN (21:26)
[2020-04-22] MEDS ORDERED: IBUPROFEN 600 MG TAB PO PRN (21:26)
[2020-04-22] MEDS ORDERED: HYDROCORTISONE ACETATE 25 MG SUPP PR PRN (21:26)
[2020-04-22] MEDS ORDERED: bisacodyL 10 MG SUPP PR PRN (21:26)
[2020-04-22] MEDS ORDERED: DIPHTHERIA/TETANUS/PERTUSSIS 0.5 ML SYR/VIAL IM ONE (21:26)
--- NOTE | 2020-04-22 23:54 | Delivery Summary ---
DATE OF OPERATION: 04/22/2020 PROCEDURE: Normal spontaneous vaginal delivery, second-degree perineal laceration repair. SURGEON: Aniceto Bustos MD. PREOPERATIVE DIAGNOSES: 1. Single intrauterine at 39 weeks 4 days gestational age. 2. Active labor. POSTOPERATIVE DIAGNOSES: 1. Single intrauterine at 39 weeks 4 days gestational age. 2. Active labor. 3. Status post delivery. ESTIMATED BLOOD LOSS: 200 mL. DRAINS: Straight cath at the completion of case. URINE OUTPUT: Approximately 30 mL via straight catheterization. COMPLICATIONS: None. FINDINGS: Viable female with weight and Apgars pending. INDICATIONS: Nita is a 29-year-old G2, P1, admitted at 39 weeks 4 days gestational age in active labor. At initial evaluation, she was found to be 7 cm dilated, 90% effaced, -1 station. The patient received an epidural for anesthesia and progressed in labor to complete-complete, +1 station, at which time she felt the urge to push and pushed for approximately 20 minutes to achieve delivery. DESCRIPTION OF PROCEDURE: The patient progressed to 10 cm dilated, 100% effaced, +1 station, pushed over intact perineum with epidural anesthesia and delivered a viable female infant with weight and Apgars as noted above. Head of the delivered in HUSSEIN position, rest into right transverse. No nuchal cord was noted. Body and shoulders quickly followed. was noted to be vigorous upon delivery and a 1-minute delayed cord clamping was initiated. Cord was then double clamped and cut. was taken over to the warmer for suction as it was showing signs of fluid aspiration. The attention was then turned to delivery of the placenta, which was delivered intact, 3-vessel cord, with gentle cord traction. On inspection of the perineum, vagina, and cervix, there was noted to be a second-degree perineal laceration, which was repaired with a traditional crown stitch using 3-0 Vicryl. Needle, sponge, and instrument counts were correct at the completion of the case with mother and stable in the immediate post-delivery period. I attest to the content of the Intraoperative Record and any orders documented therein. Any exception s are noted below.
[2020-04-23 06:30] LABS: Hematocrit (blood only) 35.2 % (37-47); Hemoglobin 11.7 g/dL (12.0-16.0)
[2020-04-23] MEDS ORDERED: PRENATAL VITAMIN 1 TAB PO SCH (08:00)
[2020-04-23] MEDS: DOCUSATE SODIUM 100 MG CAP PO SCH ×2 (08:33→20:37)
--- NOTE | 2020-04-23 08:35 | Obstetrical Progress Note ---
Date of Service April 23, 2020 Assessment & Plan (1) Encounter for care and examination after delivery: Doing well. Day 2 s/p . Routine care. Stable for discharge after 7pm Subjective Ambulation: ambulating normally Voiding: no voiding problems Passing Gas:: Yes Diet Tolerance:: regular diet Lochia:: Moderate Feeding Type:: breast feeding Physical Exam Constitutional WD/WN, vitals as above Respiratory normal respiratory effort; no respiratory distress and no labored breathing Gastrointestinal (Abdomen) Inspection/Auscultation: abdomen normal to inspection; abdomen not distended Percussion/Palpation: abdomen soft; abdomen nontender, no guarding and abdomen not rigid Genitourinary OB Exam Abdomen: + fundal height Fundus: + firm and + relation to umbilicus (Below); not tender and not boggy Results & Data ([facility]) Vital Signs (Past 12 Hours) Vital Signs Temp Pulse Pulse Resp BP BP Pulse Ox 04/23/20 08:00 36.7 C 75 18 118/78 99 04/23/20 03:55 36.8 C 75 18 115/67 98 04/23/20 00:20 36.5 C 68 20 120/73 97 04/22/20 23:22 76 121/69 04/22/20 23:07 81 129/74 04/22/20 22:52 85 129/69 04/22/20 22:37 74 127/65 04/22/20 22:22 36.5 C 88 134/66 04/22/20 22:07 96 H 126/78 04/22/20 21:52 73 125/71 04/22/20 21:37 86 124/67 04/22/20 21:22 97 H 120/65 04/22/20 21:20 95 H 97 04/22/20 21:15 91 H 97 04/22/20 21:11 86 128/67 04/22/20 21:10 83 97 04/22/20 21:05 131 H 97 04/22/20 21:00 115 H 20 79 L 04/22/20 20:57 77 127/71 04/22/20 20:55 91 H 89 L 04/22/20 20:50 86 100 04/22/20 20:45 91 H 99 04/22/20 20:44 36.9 C 04/22/20 20:41 88 146/83 H 04/22/20 20:40 91 H 99 04/22/20 20:39 75 139/81 04/22/20 20:37 71 143/84 H 04/22/20 20:35 81 147/82 H 100
[2020-04-23] MEDS ORDERED: bisacodyL 5 MG TABEC PO SCH (20:00)
== END 2020-04-23 21:40 | disposition home or self-care (01) | DRG 807 ==
LOC: OPB 19:08 → 4S1 19:11 → 4S2 23:29

== ENCOUNTER 2022-06-28 20:12 | Inpatient (IN) ==
[2022-06-28] MEDS ORDERED: LACTATED RINGER'S 1,000 ML IV PRN (20:44)
[2022-06-28] MEDS ORDERED: LIDOCAINE 1% LOCAL 20 ML VIAL INFIL PRN (20:44)
[2022-06-28] MEDS ORDERED: OXYTOCIN 30 UNITS/500 ML BAG IV PRN ×2 (20:44→21:54)
[2022-06-28] MEDS ORDERED: OXYTOCIN 30 UNITS/500ML NSS IV ONE (20:50)
--- NOTE | 2022-06-28 21:18 | History & Physical Report ---
Date of Service June 28, 2022 Assessment & Plan (1) Supervision of normal intrauterine in multigravida: (2) Normal labor: Plan Nita is a 31-year-old currently at 39 weeks 6 days gestational age presents in active labor. 1. Fetus: Cat 1 2. Labor: Active 3. GBS negative 4. Vitals: WNL History of Present Illness Primary Care Provider: Jeanna Rojas MD Nita is a 31-year-old currently at 39 weeks 6 days gestational age presents in active labor. has been uncomplicated to date. History of 2 prior uncomplicated vaginal deliveries. OB Labs: Blood Type B Positive 11/20/21 Antibody Screen NEGATIVE 11/20/21 Hemoglobin 11.6 g/dl (12.0-16.0) L 04/08/22 Hematocrit 34.1 % (37.0-47.0) L 04/08/22 Mean Corpuscular Volume 84.0 fL (80.0-100.0) 11/20/21 Platelet Count 209 K/uL (130-400) 11/20/21 Rubella IgG Antibody Immune (Immune) 11/20/21 Rapid Plasma Reagin Nonreactive (Nonreactive) 11/20/21 Hepatitis B Surface Antigen Neg (Neg) 09/13/19 Hepatitis B Surface Antigen. NON-REACTIVE (NON-REACTIVE) 11/20/21 Hepatitis C Antibody (EIA) NON-REACTIVE (NON-REACTIVE) 11/20/21 HIV (1&2) Ab and P24 Ag, 4th Gener Neg (Neg) 09/13/19 HIV (1&2) Ag and Ab Confirmation NON-REACTIVE (NON-REACTIVE) 11/20/21 Glucose 1 Hour 50 gm Load 112 mg/dl (70-130) 04/08/22 OB Optional Labs: Chlamydia trachomatis RNA NOT DETECTED (NOT DETECTED) 11/20/21 Neisseria gonorrhoeae RNA NOT DETECTED (NOT DETECTED) 11/20/21 Thyroid Stimulating Hormone (TSH) 1.910 uIu/ml (0.300-4.500) 05/08/19 Labs Reviewed: cfdna-low risk--mln cf/sma neg last 04/07/2017 Allergies Allergy/AdvReac Type Severity Reaction Status Date / Time No Known Allergies Allergy Verified 06/22/22 14:04 Home Medications Medication Instructions Recorded Confirmed Type prenat.vits,heather,leg-tleh-uvzek 1 tab PO DAILY 09/06/19 06/22/22 History Patient History Medical History (Updated 06/28/22 @ 21:18 by Aniceto Bustos MD) Encounter for anatomic survey Encounter for care and examination after delivery Exudative pharyngitis History of varicella vaccination HTN (hypertension), benign Neurogenic syncope Synovitis of left knee Surgical History [place] teeth removed Family History Mother Hypertension Aunt Ovarian cancer Denies family history of Breast cancer Colorectal cancer Social History (Updated 11/11/21 @ 10:58 by eJanna Matson) Smoking Status: Never smoker Hx Alcohol Use: No Hx Substance Use: No Preferred Language: Nepali Communication Ability: Effective Content Manager Required: No Beliefs That Will Affect Care: None marital status: marital status details: Roe Qureshi (30) [phone] Current Living Situation: Spouse and Family Current Living Situation Comment: lives with and 2 children, no pets current occupational status: unemployed current occupation: homemaker Other Information That Helps Us Care for You: No Feels Safe at Home: Yes Safety Concerns: Feels Safe At This Time Assistive Devices: None Physical Exam Genitourinary: Manual OB Exam: + cervical dilation 8 cm, + cervical effacement 100% and + station OB Exam Monitor Tracing: + external FHT monitor used, + external uterine monitor used, + category I and + normal FHT variability; no early decelerations present, no late decelerations present and no variable decelerations Exam per nurse Results & Data Vital Signs (Past 12 Hours) Vital Signs Temp Pulse Resp BP 06/28/22 20:28 83 137/85 06/28/22 20:25 36.4 C L 18 Coding Level of Care Code None Diagnoses Supervision of normal intrauterine in multigravida Z34.80 Normal labor O80; Z37.9
[2022-06-28 21:39] LABS: Hematocrit (blood only) 37.8 % (37.0-47.0); Mean Corpuscular Hemoglobin 30.7 pg (25.0-34.0); Mean Corpuscular Hgb Conc 34.4 g/dL (32.0-36.0); Mean Corpuscular Volume 89.2 fL (80.0-100.0); Mean Platelet Volume 11.7 fL (9.4-12.4); Platelet Count 195 K/uL (130-400); RDW Coefficient of Variation 13.4 % (11.5-14.5); RDW Standard Deviation 43.7 fL (36.4-46.3); Red Blood Count 4.24 M/uL (4.20-5.40); White Blood Count 9.22 K/ul (4.8-10.8)
[2022-06-28] MEDS ORDERED: OXYTOCIN 10 UNITS/ML VIAL ONE (21:52)
[2022-06-28] MEDS ORDERED: IBUPROFEN 600 MG TAB PO PRN (21:54)
[2022-06-28] MEDS ORDERED: ACETAMINOPHEN 325 MG TAB PO PRN (21:54)
[2022-06-28] MEDS ORDERED: HYDROCORTISONE ACETATE 25 MG SUPP PR PRN (21:54)
[2022-06-28] MEDS ORDERED: DIPHTHERIA/TETANUS/PERTUSSIS 0.5mL SYR/VIAL (Age 7+yrs) IM ONE (21:54)
[2022-06-28] MEDS ORDERED: BENZOCAINE 20% AER SPR 82.5 GM CAN EXT PRN (21:54)
--- NOTE | 2022-06-29 07:26 | Obstetrical Progress Note ---
Date of Service June 29, 2022 Assessment & Plan (1) Normal labor: (2) Supervision of normal intrauterine in multigravida: (3) : Plan Nita is a 31 y/o female who is PPD #1 following delivery at 39 6/7 weeks. -Meeting all milestones -Vital signs reviewed and WNL, Hemoglobin repeat pending this a.m. -B+/GBS negative/Rubella immune -Follow up in 6 weeks for appointment -Continue routine care -Patient hoping to d/c tonight at ~24hr kitty Admission and Anticipated Discharge Date Admission Date: June 28, 2022 Supervising Physician Co-Signing Physician Notes Patient seen and evaluated with resident and agree plan. Stable for discharge today if preferred Subjective Nita is a 31 y/o female who is PPD #1 following delivery at 39 6/7 weeks. She reports feeling well overall this morning. Notes that pain is well managed on analgesics. Voiding without issue. Tolerating meals overnight and able to ambulate some. Has some persistent lochia with some improvement this morning. Currently breast feeding. Review of Systems Constitutional: no fever, no chills and no sweats Respiratory: no cough, no dyspnea and no wheezing Cardiovascular: no chest pain, no palpitations and no calf pain Genitourinary: no dysuria Neurologic: no headache(s) Physical Exam Constitutional: WD/WN, vitals as above no acute distress Respiratory: no respiratory distress Auscultation: lungs clear to auscultation bilaterally; no rales, no rhonchi and no wheezes Cardiovascular: RRR, no murmur, no edema Extremities: no calf tenderness and no edema Negative Tona's sign bilaterally. Gastrointestinal (Abdomen): Inspection/Auscultation: normal bowel sounds Genitourinary: Uterine fundus firm, palpable below the umbilicus. Results & Data Vital Signs (Past 12 Hours) Vital Signs Temp Pulse Pulse Resp BP BP 06/29/22 03:45 36.9 C 80 18 118/79 06/29/22 00:19 36.9 C 18 140/74 06/28/22 23:55 18 06/28/22 23:25 18 06/28/22 22:55 18 06/28/22 22:40 18 06/28/22 22:25 18 06/28/22 22:10 18 06/28/22 21:55 36.8 C 18 06/28/22 23:54 99 H 140/74 06/28/22 23:44 78 121/66 06/28/22 23:40 88 135/76 06/28/22 23:25 77 132/81 06/28/22 23:10 77 129/70 06/28/22 22:55 74 130/91 06/28/22 22:40 77 132/86 06/28/22 22:25 80 134/82 06/28/22 21:25 18 06/28/22 21:25 36.9 C 18 06/28/22 22:10 77 129/73 06/28/22 21:55 89 138/85 06/28/22 20:28 83 137/85 06/28/22 20:25 36.4 C L 18 Resident Activity Tracking Resident Involvement: Resident Care Provided Care Provided: OB Delivery
--- NOTE | 2022-06-29 07:26 | Delivery Summary ---
DATE OF SERVICE: 06/28/2022 PROCEDURE: Normal spontaneous vaginal delivery with second-degree perineal laceration repair. SURGEON: Aniceto Bustos MD. PREOPERATIVE DIAGNOSES: 1. Single intrauterine at 39 weeks 6 days gestational age. 2. Active labor. POSTOPERATIVE DIAGNOSES: 1. Single intrauterine at 39 weeks 6 days gestational age. 2. Active labor. 3. Status post procedure. ESTIMATED BLOOD LOSS: 100 mL. DRAINS: None. FLUIDS: Continuous lactated Ringer. URINE OUTPUT: Not measured. COMPLICATIONS: None. FINDINGS: Viable female with weight and Apgars pending. INDICATIONS: Nita is a 31-year-old G3, P2, admitted at 8 cm dilation in active labor. The patie nt progressed in labor and underwent artificial rupture of membranes. The patient pushed over approx imately 3 contractions to achieve delivery. DESCRIPTION OF PROCEDURE: The patient progressed to 10 cm dilated, 100% effaced, positive 1 station, pushed over intact perineum without anesthesia and delivered a viable female with weight and Apgars pending. Head of the delivered in RICHARD position, restituted to left transverse. No n uchal cord was noted. Body and shoulders quickly followed. was noted to be vigorous soon af ter delivery and 1 minute delayed cord clamping was initiated. Cord was then double clamped and cut. remained on maternal abdomen. Cord blood was obtained. Attention was then turned to hector aaron of the placenta, which was delivered intact, 3-vessel cord, gentle cord traction. On inspection of the perineum, vagina, cervix, there was noted to be small second-degree perineal laceration, which was repaired with 3-0 Vicryl in traditional crown stitch. A 10 mL of lidocaine was used prior to in itiating the repair. Needle, sponge, and instrument counts were correct at the completion of the kelly e. Both mother and stable in the immediate post-delivery period. Job ID: [id number]
[2022-06-29] MEDS: DOCUSATE SODIUM 100 MG CAP PO SCH ×2 (07:36→20:48)
[2022-06-29] MEDS ORDERED: PRENATAL VITAMIN 1 TAB PO SCH (08:00)
[2022-06-29] MEDS ORDERED: FERROUS SULFATE 325 MG TAB PO SCH (08:00)
[2022-06-29] MEDS ORDERED: bisacodyL 5 MG TABEC PO SCH (20:00)
[2022-06-30] MEDS ORDERED: bisacodyL 10 MG SUPP PR PRN
== END 2022-06-29 22:15 | disposition home or self-care (01) | DRG 807 ==
LOC: OPB 20:12 → 4S1 20:15 → 4E1 06-29 00:28
DX: Z3A.40 40 weeks gestation of pregnancy; O70.1 Second degree perineal laceration during delivery; Z37.0 Single live birth

== ENCOUNTER 2025-01-02 07:48 | Inpatient (IN) ==
[2025-01-02] MEDS ORDERED: LACTATED RINGER'S 1,000 ML IV PRN (08:10)
[2025-01-02] MEDS ORDERED: ACETAMINOPHEN 325 MG TAB PO PRN ×2 (08:10→17:53)
[2025-01-02] MEDS ORDERED: LIDOCAINE 1% LOCAL 20 ML VIAL INFIL PRN (08:10)
[2025-01-02] MEDS ORDERED: OXYTOCIN 30 UNITS/NSS 30 UNITS/500 ML BAG IV PRN (08:10)
--- NOTE | 2025-01-02 08:15 | History & Physical Report ---
Date of Service January 02, 2025 Assessment & Plan (1) IUFD at 20 weeks or more of gestation: Plan Patient has IUFD at 20.1. She was counseled yesterday about her options for treatment including hipolito for D&E. Patient would like to proceed with iol. Plan cytotec 400mcg q 3 hours. epidural on demand. Discussed time frame of nothing happening for some time and then rapid changes and delivery . Discussed potential for retained placenta and need for D&E after. Will begin with iufd counseling. Discussed potential for chromosomal analysis and autopsy. Considering. All questions answered to the best of my ability. Admission and Anticipated Discharge Date Admission Date: January 02, 2025 History of Present Illness Chief Complaint: iufd Primary Care Provider: Jeanna Rojas MD Patientis a [id number] with iup at 20 1/7 weeks who presents for iol for IUFD. Patient presented to the office yesterday for her anatomy ultrasound and IUFD diagnosed. there was significant edema and hydrops changes. Patient has no symptoms. Patient had a low risk panorama. did not do an afp. Patient has no issues or plans OB Labs: Blood Type B Positive 10/10/24 Antibody Screen NEGATIVE 10/10/24 Hgb 12.2 g/dl (12.0-16.0) 12/06/24 Hct 39.3 % (37.0-47.0) 12/06/24 MCV 71.4 fL (80.0-100.0) L 10/10/24 Plt Count 290 K/uL (130-400) 10/10/24 Rubella IgG Antibody Immune (Immune) 10/10/24 RPR Nonreactive (Nonreactive) 11/20/21 Treponema pallidum Ab Negative (Negative) 10/10/24 Hep Bs Antigen Negative (Negative) 10/10/24 Hep Bs Antigen NON-REACTIVE (NON-REACTIVE) 11/20/21 Hepatitis C Antibody Negative (Negative) 10/10/24 Hepatitis C Ab (EIA) NON-REACTIVE (NON-REACTIVE) 11/20/21 HIV 1&2 Ab/P24 Ag 4thGn Negative (Negative) 10/10/24 HIV (1&2) Ag & Ab Conf NON-REACTIVE (NON-REACTIVE) 11/20/21 Glucose 1 Hr 50 gm 60 mg/dl (70-130) L 12/06/24 OB Optional Labs: Chlamydia trachomatis RNA Not Detected (NotDetected) 10/10/24 Neisseria gonorrhoeae RNA Not Detected (NotDetected) 10/10/24 Thyroid Stimulating Hormone (TSH) 1.910 uIu/ml (0.300-4.500) 05/08/19 Labs Reviewed: cf/sma neg last 04/07/2017 low risk panorama--akh Allergies Allergy/AdvReac Type Severity Reaction Status Date / Time No Known Allergies Allergy Verified 01/01/25 13:13 Home Medications Medication Instructions Recorded Confirmed Type prenat.vits,heather,yvg-xmki-zmdpd 1 tab PO DAILY 09/06/19 01/01/25 History ferrous sulfate PO 12/06/24 01/01/25 History Patient History Medical History Synovitis of left knee Mastitis HTN (hypertension), benign Neurogenic syncope History of varicella vaccination Exudative pharyngitis Surgical History Urich teeth removed Family History Mother Hypertension Multiple myeloma Aunt Ovarian cancer Denies family history of Breast cancer Colorectal cancer Social History Smoking Status: Never smoker Do You Dip or Chew Tobacco: No; Hx Alcohol Use: No Hx Substance Use: No Preferred Language: Icelandic Communication Ability: Effective [employer] Required: No Beliefs That Will Affect Care: None marital status: marital status details: Roe Qureshi (33) [phone] Current Living Situation: Spouse and Family Current Living Situation Comment: lives with and 3 children, no pets current occupational status: unemployed current occupation: homemaker How many Children do You have: 3 Feels Safe at Home: Yes Assistive Devices: None OB History Past Pregnancies Del. Date GA wks Lbr Lgth wt Sex Type del Anes Place Del Prov ? Comment 10/27/17 39 17 hrs 6-14 F Epid ural [facility] Can No ?chtn 04/22/20 39 7lbs 5.1oz F Ep idural [facility] Bustos No 06/28/22 40 7lb 3oz F None [facility]. Bustos N DRIVER MANAGER History noncontributory Physical Exam Constitutional: WD/WN, vitals as above Cardiovascular: Extremities: no calf tenderness and no edema Gastrointestinal (Abdomen): soft, gravid, fundus at u Psychiatric: A+Ox3, euthymic affect Genitourinary: cx--FT/25%/high toco--none 400mcg cytotec placed vaginally Results & Data Vital Signs (Past 12 Hours) Vital Signs Pulse BP 01/02/25 07:59 97 H 133/92 Coding Level of Care Code None Diagnoses IUFD at 20 weeks or more of gestation O36.4XX0
[2025-01-02 08:50] LABS: Hematocrit (blood only) 37.5 % (37.0-47.0); Hemoglobin 12.6 g/dl (12.0-16.0); Mean Corpuscular Hemoglobin 27.7 pg (25.0-34.0); Mean Corpuscular Volume 82.4 fL (80.0-100.0); Platelet Count 172 K/uL (130-400); RDW Standard Deviation 54.1 fL (36.4-46.3); Red Blood Count 4.55 M/uL (4.20-5.40); White Blood Count 6.99 K/ul (4.8-10.8)
[2025-01-02 09:11] LABS: Alanine Aminotransferase 16 U/L (7-52); Albumin Globulin Ratio 1.0 (0.9-2); Albumin Level 3.6 gm/dl (3.4-5.0); Alkaline Phosphatase 58 U/L (34-104); Anion Gap 8 (3-11); Bilirubin,Total 0.3 mg/dl (0.2-1.0); Blood Urea Nitrogen 9 mg/dl (6-23); Calcium 9.2 mg/dl (8.6-10.3); Carbon Dioxide 23 mmol/L (21-32); Chloride 106 mmol/L (98-107); Globulin 3.5 gm/dl (2.5-4.0); Glucose 91 mg/dl (70-99(Fasting)); Potassium 3.6 mmol/L (3.5-5.1); Sodium 137 mmol/L (136-145); Total Protein 7.1 gm/dl (6.0-8.3)
[2025-01-02 09:24] LABS: Hemoglobin A1C 5.6 % (4.5-5.6)
[2025-01-02 09:26] LABS: Thyroid Stimulating Hormone 5.776 uIu/ml (0.300-4.500)
--- NOTE | 2025-01-02 10:19 | Ultrasound Report ---
ULTRASOUND OBSTETRICAL LIMITED CLINICAL HISTORY: Intrauterine demise. COMPARISON STUDY: Obstetrical ultrasound dated 01/01/2025. FINDINGS: Real-time grayscale and color Doppler sonography of the gravid uterus is performed to asses s for demise. There is a single intrauterine gestation. No cardiac activity was identified conf irming intrauterine demise. The metrologist was present during the examination. IMPRESSION: There is a single intrauterine gestation with no cardiac activity identified confirming f etal demise. Electronically signed by: Valentin Gill M.D. 01/02/2025 10:18 AM
[2025-01-02] MEDS: OXYTOCIN 30 UNITS/NSS 30 UNITS/500 ML BAG IV PRN (17:07)
[2025-01-02 17:09] VITALS: O2SAT 93
--- NOTE | 2025-01-02 17:23 | Delivery Summary ---
Vaginal Delivery Summary Date of Service January 02, 2025 Vaginal Delivery Summary Pre-operative Diagnosis: iufd at 20 weeks Post-operative Diagnosis: same Procedure: cytotec vaginally en cul EBL: 100cc Anesthesia: none Procedure: The patient presented for iol for IUFD. Ultrasound was done to confirm diagnosis for the parents. two doses of 400mcg of cytotec were given to the patient. She started to become uncomfortable and requested epidural. However, the patient began to deliver the sac.The patient delivered without maternal effort the sac intact and placenta that also appeared to be intact. Bleeding was minimal. The sac was ruptured for dark fluid. Cord was clamped and cut by the fob. The was placed on the maternal chest. Cervix/sulci/rectum/perineum intact. Mother doing well at the end of the delivery. It appears that the placenta is intact. There is minimal bleeding. The placenta will be sent for pathology. They desire chromosomal analysis so tissue and cord will be sent. I do not think they are going to want an a utopsy. The baby shows skin edema of the skull and abdomen. The hands and feet appear normal with appropriate number of digits. No rocker bottom feet noted. The abdominal wall is intact. The umbilical cord is thin , without much [place]art[place] Jelly but other berrios appears appropriately coiled and no knots noted. The back also appears intact. The eyes open. The nose appears normal. The ears appear to be appropriately set. There is no cleft lip noted. Umbilical cord insertion wnl. Other than the edema, the baby appears grossly normal. [facility] Vaginal Delivery Charge Delivery Type Details:
[2025-01-02] MEDS: METHYLERGONOVINE MALEATE 0.2 MG/ML AMP IM STA (17:30)
[2025-01-02] MEDS ORDERED: HYDROCORTISONE ACETATE 25 MG SUPP PR PRN (17:53)
[2025-01-02] MEDS: BUPIVACAINE 0.25% PF 30 ML VIAL ONE (18:20)
[2025-01-02] MEDS: fentANYL 2 MCG/ML BUPIVacaine 0.125%-NSS 100ML BAG ONE (18:20)
[2025-01-02] MEDS: METHYLERGONOVINE MALEATE 0.2 MG/ML AMP ONE (18:21)
[2025-01-02] MEDS: SODIUM CHLORIDE 0.9% PF INJ 10 ML VIAL ONE (18:21)
[2025-01-02] MEDS: LIDOCAINE 2%/EPINEPHRINE 1:200,000 20 ML PF ONE (18:21)
[2025-01-02] MEDS: DOCUSATE SODIUM 100 MG CAP PO SCH (21:12)
--- NOTE | 2025-01-03 07:25 | Obstetrical Progress Note ---
Date of Service January 03, 2025 Assessment & Plan (1) IUFD at 20 weeks or more of gestation: Plan Doing well, plan d/c this am. Will see in two weeks. d/c instructions reviewed. Subjective Ambulation: ambulating normally Voiding: no voiding problems Passing Gas:: Yes Diet Tolerance:: regular diet Lochia:: Small Did get some sleep Physical Exam Constitutional WD/WN, vitals as above Cardiovascular Extremities: no calf tenderness and no edema Gastrointestinal (Abdomen) soft, nt, nd fundus not palpable Psychiatric A+Ox3, euthymic affect Results & Data Vital Signs (Past 12 Hours) Vital Signs Temp Pulse Resp BP 01/03/25 03:15 37.0 C 16 01/03/25 03:08 65 119/74 01/03/25 00:00 37.2 C 18 01/02/25 23:56 71 01/02/25 23:56 117/64 01/02/25 20:51 75 01/02/25 20:51 135/64 01/02/25 20:02 80 01/02/25 20:02 154/77 H 01/02/25 20:00 37.1 C 18 01/02/25 19:46 80 01/02/25 19:46 135/79 01/02/25 19:32 75 01/02/25 19:32 139/79
[2025-01-03] MEDS: BENZOCAINE 20% SPRY 85 APPLN/85 GM CAN EXT PRN (07:58)
[2025-01-03] MEDS: PRENATAL VITAMIN 1 TAB PO SCH (07:58)
[2025-01-03] MEDS: IBUPROFEN 600 MG TAB PO PRN (07:59)
[2025-01-03 08:04] VITALS: BP 133/88; PULSE 72
[2025-01-03 08:31] VITALS: RESP 20; TEMP 97.9
[2025-01-03] MEDS: DIPHTHER/TETAN/PERTUS Vaccine (Tdap, Adol/Adult) 0.5mL IM ONE (08:35)
[2025-01-03 09:02] LABS: Hematocrit (blood only) 36.0 % (37.0-47.0); Hemoglobin 11.9 g/dl (12.0-16.0)
== END 2025-01-03 11:30 | disposition home or self-care (01) | DRG 807 ==
LOC: 4S1 07:48